=== PATIENT | male | born 1950 | race Caucasian/White ===

== ENCOUNTER 2018-07-23 10:48 | Day surgery (SDC) | payer MEDICARE, BC ==
[~2018-07-23 10:48] MED LIST: Bupivacaine 0.5% 50 ML MDV ONE; Lidocaine 1% with EPINEPHrine 1:100,000 50 ML MDV ONE
[2018-07-23] MEDS ORDERED: Dextrose 5%-Lactated Ringers 1,000 ML IV SCH (11:10)
[2018-07-23] MEDS ORDERED: ceFAZolin 2 GM in Premix Bag 1 BAG IV ONE (11:20)
[2018-07-23] MEDS ORDERED: fentaNYL 100 MCG/2 ML SDV ONE (11:55)
[2018-07-23] MEDS ORDERED: Propofol 200 MG/20 ML SDV ONE ×3 (11:55→13:29)
[2018-07-23] MEDS ORDERED: Midazolam 1 MG/ML 2 ML SDV ONE (11:55)
--- NOTE | 2018-07-23 14:34 | OR ---
DATE OF PROCEDURE: 07/23/2018 PREOPERATIVE DIAGNOSIS: Reducible left inguinal hernia. POSTOPERATIVE DIAGNOSIS: Large reducible indirect left inguinal hernia. PROCEDURE: Repair of left inguinal hernia with an extra-large PerFix mesh plug and patch. SURGEON: Rodriguez Flood MD. ANESTHESIA: IV anesthesia with monitored anesthesia care. INDICATION: This 67-year-old white male has been aware of a left inguinal hernia for 12 years. It never really bothered him until recently. He is now willing to have it repaired. He has been wearing a truss. He denies predisposing factors for hernia formation. No signs or symptoms of incarceration or obstruction. I counseled him for repair of this with mesh, including risks and alternatives, and he gave his informed consent to proceed. DESCRIPTION OF PROCEDURE: The patient was placed supine. IV anesthesia was administered by the Anesthesia Service. Time-out was held. Lidocaine 1% with epinephrine in a 50:50 mix with 0.5% Marcaine was infiltrated about the left groin. A left groin incision was made 2 cm superior and medial to the inguinal ligament. This was carried deep using Bovie cautery to the external oblique. The external oblique was opened parallel to the course of its fibers from the internal to external ring. The spermatic cord was mobilized and a Erica drain placed about it. The ilioinguinal nerve was identified and divided. The cremasteric fibers were divided longitudinally to reveal a large indirect hernia sac. This was dissected free and reduced back into the abdominal cavity. An extra- large PerFix mesh plug manufactured by [employer] was obtained. The plug was placed down underneath the fascia, through the defect, and was anchored to the underside of the fascia with horizontal mattress stitches of 2-0 Vicryl. The onlay patch was obtained, cut to appropriate length and placed over the inguinal floor. It was approximated to itself around the spermatic cord with a horizontal mattress stitch of 2-0 Vicryl. The inguinal ligament was then closed with a running stitch of 2-0 Vicryl. Additional local anesthesia was infiltrated about the incision. Interrupted 3-0 Vicryl and 2-0 Vicryl stitches were placed to approximate Mars's fascia. 4-0 Vicryl using a subcuticular stitch was placed to approximate the skin. Dermabond was applied. The patient tolerated the procedure well and was brought to the recovery room in a good condition. Rodriguez Flood MD /[id number] MTDD
[2018-07-23] MEDS ORDERED: Acetaminophen/HYDROcodone 325-5 MG Tab PO PRN (14:38)
[2018-07-23 15:29] VITALS: BP 145/82
== END 2018-07-23 16:05 | disposition home or self-care (01) ==
LOC: JP.SDS 10:48
PROVIDERS: ATTEND Surgery
DX: K40.90 Unilateral inguinal hernia, without obstruction or gangrene, not specified as recurrent (principal); I10 Essential (primary) hypertension; Z87.891 Personal history of nicotine dependence
CPT/HCPCS: 49505; A9270; C1781; J0690; J2250; J2704; J3010; J3490; J7042